=== PATIENT | female | born 1990 | race African-American/Black ===

== ENCOUNTER 2016-07-03 19:04 | Emergency (ER) | payer OTHER ==
[2016-07-03 19:15] VITALS: BP 125/81
[2016-07-03] MEDS ORDERED: ERYT1OIN6 OP (19:29)
--- NOTE | 2016-07-03 19:30 | PHYS DOC ---
Past History Past Medical History: No Pertinent History Past Surgical History: No Surgical History Smoking: Non-smoker Alcohol Use: Occasionally Drug Use: None Adult General Chief Complaint Chief Complaint: EYE PROBLEMS HPI HPI 26-year-old female presenting to the emergency department today with left eye redness and swelling this started approximately 3 days ago. She was seen by a physician campus administrative assistant who prescribed her an antihistamine topical medication which has not improved her symptoms. She describes a burning in the left eye that is mild intermittent and associated with tearing and matting in the morning. She denies fevers chills. She reports normal vision. Review of systems is negative for chest pain shortness of breath neck pain headache fevers or chills. All other review of systems is negative unless otherwise noted in history of present illness. Review of Systems Review of Systems SEE ABOVE. Allergies Allergies Allergies Coded Allergies Type Severity Reaction Last Updated Verified nitrofurantoin Allergy Intermediate Hives 09/22/15 Yes Physical Exam Physical Exam Constitutional: Well developed, well nourished, no acute distress, non-toxic appearance. HENT: Normocephalic, atraumatic, bilateral external ears normal, oropharynx moist, no oral exudates, nose normal. [] Eyes: Left Eye Exam Visual acuity: nl Visual mondragon: nl External exam: no lacerations, erythema, exophthalmos, hordeolum, or blepharitis. Mild swelling of the lid. EOMI Pupil: Equal round and reactive to light Conjunctiva: No evidence of foreign body. Lids everted. Fundoscope: limited exam, normal without dilation Neck: Normal range of motion, no tenderness, supple, no stridor. Cardiovascular:Heart rate regular rhythm, no murmur [] Lungs & Thorax: Bilateral breath sounds clear to auscultation Abdomen: Bowel sounds normal, soft, no tenderness, no masses, no pulsatile masses. [] Skin: Warm, dry, no erythema, no rash. [] Back: No tenderness, no CVA tenderness. [] Extremities: No tenderness, no cyanosis, no clubbing, ROM intact, no edema. [] Neurologic: Alert and oriented X 3, normal motor function, normal sensory function, no focal deficits noted. [] Psychologic: Affect normal, judgement normal, mood normal. [] Current Patient Data Vital Signs Vital Signs Date Time Temp Pulse Resp B/P (MAP) Pulse Ox O2 Delivery O2 Flow Rate FiO2 5/21/17 19:15 98.5 63 20 100 Room Air EKG EKG [] Radiology/Procedures Radiology/Procedures [] Course & Med Decision Making Course & Med Decision Making Pertinent Labs and Imaging studies reviewed. (See chart for details) [] 26-year-old female presenting to the emergency department today with left eye redness and swelling. Symptomatology consistent with conjunctivitis. Patient was given erythromycin ointment to follow-up with eye doctor in the next 1-2 days. The patient was then discharged home in stable condition to follow up with eye dr. They were to return if their symptoms worsened or if they were concerned for any reason. [id number] discharge instructions and return precautions were given. Patient's questions were answered to their satisfaction. Patient is comfortable plan. Dragon Disclaimer Dragon Disclaimer This chart was dictated in whole or in part using Voice Recognition software in a busy, high-work load, and often noisy Emergency Department environment. It may contain unintended and wholly unrecognized errors or omissions. Departure Departure: Impression: Primary Impression: Acute conjunctivitis, left eye Disposition: 01 HOME, SELF-CARE Condition: STABLE Referrals: FAUSTO LIM DO (PCP) Patient Instructions: Conjunctivitis (Viral and Bacterial) Additional Instructions: Thank you for allowing us to participate in your care today. Followup with an eye doctor in 1-2 days. If you do not have a primary care provider you can ask for a list of our primary care providers. Return to the emergency department you have any new or concerning findings. This should be evaluated by the primary care physician and any necessary consulting services for continued management within a few days after discharge. Return to emergency room if you have any new or concerning symptoms including but not limited to fever, chills, nausea, vomiting, intractable pain, any new rashes, chest pain, shortness of air, uncontrolled bleeding, difficulty breathing, and/or vision loss. Scripts Erythromycin Base (Erythromycin) 1 Gm Oint...g. 1 GM OP TID for 5 Days, MISC Prov: JAY TROTTER MD 07/03/16 Problem Qualifiers Primary Impression: Acute conjunctivitis, left eye Acute conjunctivitis type: unspecified Qualified Codes: H10.32 - Unspecified acute conjunctivitis, left eye JAY TROTTER MD July 03, 2016 19:30
== END 2016-07-03 19:35 | disposition home or self-care (01) ==
LOC: ER 19:04
DX: H10.32 Unspecified acute conjunctivitis, left eye (principal); Z88.8 Allergy status to other drugs, medicaments and biological substances
CPT/HCPCS: 99283